=== PATIENT | male | born 1935 | race Caucasian/White ===

== ENCOUNTER 2018-02-28 06:39 | Day surgery (SDC) | END 2018-02-28 10:31 | disposition home or self-care (01) ==

== ENCOUNTER 2018-03-08 00:05 | Observation (INO) | END 2018-03-09 17:45 | disposition left against medical advice (07) ==

== ENCOUNTER 2018-03-10 01:19 | Inpatient (IN) | END 2018-03-14 16:20 | disposition home or self-care (01) | DRG 374 ==

== ENCOUNTER 2019-02-28 09:20 | Inpatient (IN) | payer MEDICARE, BC ==
[~2019-02-28] VITALS: Ht 167.6 cm; Wt 61.4 kg
[~2019-02-28 09:20] MED LIST: DONE10TA7 PO; MULTI PO; OMEG1CAP17 PO; OMEP40CA6 PO; TERA5CAP3 PO
[2019-02-28] MEDS ORDERED: SOD CHLORIDE 0.9% 1,000 ML IV STA (09:57)
[2019-02-28] MEDS ORDERED: PANT40TA4 PO (10:40)
[2019-02-28] MEDS ORDERED: ASC500 PO (10:40)
[2019-02-28] MEDS ORDERED: VIT1TABL46 PO (10:41)
--- NOTE | 2019-02-28 12:22 | ERD ---
ER Documentation Chief Complaint Chief Complaint SENT BY [facility] FOR DIARRHEA AND SYNCOPAL EPISODE WITH NO TRAUMA OR NEURO HPI This is an 83-year-old man with a history of esophageal cancer seen and evaluated at [facility] for multiple syncopal episodes occurring yesterday associated with loose stools and diarrhea. Patient was treated with IV fluids and antibiotics in the emergency department and was admitted after [place] physician spoke to on-call hospitalist at [facility]. Patient has had no blood per rectum or melena and no recent complaints of chest pain or shortness of breath. ROS All systems reviewed and are negative except as per history of present illness. Medications Home Meds Reported Medications Vitamin B Complex* (Vitamin B Complex*) 1 Each Tablet, 1 TAB PO DAILY, TAB 02/28/19 Ascorbic Acid (Vitamin C) 500 Mg Tab, 500 MG PO DAILY, TAB 02/28/19 Pantoprazole* (Pantoprazole*) 40 Mg Tablet.dr, 40 MG PO AC BREAKFAST, TAB 02/28/19 Discontinued Reported Medications Multivitamins* (Theragran*) 1 Tab Tab, 1 TAB PO DAILY, TAB 03/10/18 [place]-3 Fatty Acids/Fish Oil (Fish Oil 1,000 mg Softgel) 1 Each Capsule, 1 EACH PO, CAP 03/10/18 Omeprazole* (Omeprazole*) 40 Mg Capsule.dr, 40 MG PO DAILY, #30 CAP 03/10/18 Donepezil* (Aricept*) 10 Mg Tablet, 10 MG PO DAILY, TAB 03/10/18 Terazosin Hcl* (Terazosin Hcl*) 5 Mg Capsule, 5 MG PO HS, CAP 03/10/18 Allergies Allergies: Coded Allergies: No Known Allergy (Unverified , 02/28/19) PMhx/Soc Esophageal carcinoma, CAD, anemia, hypertension, hyperlipidemia, gastritis History of Surgery: Yes (stomach) Anesthesia Reaction: No Hx Neurological Disorder: No Hx Respiratory Disorders: No Hx Cardiac Disorders: Yes (low bp) Hx Psychiatric Problems: Yes (DEPRESSION) Hx Miscellaneous Medical Probl: Yes (prediabetes) Hx Alcohol Use: No Hx Substance Use: No (ALCOHOL) Hx Tobacco Use: No (QUIT FEW MONTHS AGO PER PATIENT) Smoking Status: Former smoker FmHx Family History: No diabetes Physical Exam Vitals Vital Signs Date Temp Pulse Resp B/P (MAP) Pulse Ox O2 O2 Flow FiO2 Time Delivery Rate 02/28/19 77 18 128/79 98 Room Air 10:15 (95) 02/28/19 98.4 98 20 124/73 97 09:38 (90) Physical Exam GENERAL: Well-developed, elderly, chronically debilitated man, appears dehydrated, afebrile HEENT: Dehydrated, pink conjunctive a, no cervical spine tenderness or step-off deformity CARDIAC: Regular rate and rhythm, no murmurs rubs or gallops LUNGS: Clear bilaterally no wheezing crackles or stridor SKIN: Warm and dry to touch, no abrasions, contusions, or hematomas, no lacerations, no ecchymosis, no target lesions, and without ulcers PSYCH: Normal affect without agitation or irritability Results 24 hrs Current Medications Medications Dose Sig/Rommel Start Time Status Last (Trade) Ordered Route PRN Stop Time Admin Dose Reason Admin Sodium 1,000 ml @ Q1H STAT 02/28/19 DC 02/28/19 Chloride 1,000 mls/hr IV 09:57 10:22 02/28/19 10:56 Procedures/MDM IV line was established patient was placed on equipment monitor phototypesetting rhythm strip revealed a sinus rhythm at about 80 bpm. I administered 1 L normal saline IV for dehydration. I reviewed patient's recent labs which were just performed at [facility], further intervention, imaging, and lab tests will be deferred to admitting team. Patient admitted to telemetry setting under hospitalist. Departure Diagnosis: Primary Impression: Syncope Syncope type: unspecified Qualified Codes: R55 - Syncope and collapse Additional Impressions: Diarrhea Diarrhea type: unspecified type Qualified Codes: R19.7 - Diarrhea, unspeci fied Dehydration Esophageal cancer Malignant neoplasm of esophagus location: unspecified location Qualified Codes: C15.9 - Malignant neoplasm of esophagus, unspecified Condition: JACOBY Brothers MD Feb 28, 2019 12:22
[2019-02-28] MEDS ORDERED: NACL 0.9% 3 ML SYG IV SCH (15:30)
[2019-02-28] MEDS ORDERED: SOD CHLORIDE 0.9% 1,000 ML IV SCH (15:30)
[2019-02-28] MEDS ORDERED: ONDANSETRON 4 MG INJ IV PRN (15:30)
[2019-02-28] MEDS ORDERED: ZOLPIDEM 5 MG TAB PO PRN (15:30)
[2019-02-28] MEDS ORDERED: DOCUSATE SODIUM 100 MG CAP PO PRN (15:30)
[2019-02-28] MEDS ORDERED: morphine 2 MG INJ IV PRN (15:30)
[2019-02-28] MEDS ORDERED: HYDROCODONE/APAP (5/325) TAB PO PRN (15:30)
[2019-02-28] MEDS ORDERED: ACETAMINOPHEN 325 MG TAB PO PRN (15:30)
--- NOTE | 2019-02-28 15:37 | HP ---
Date/Time of Note Date/Time of Note DATE: 02/28/19 TIME: 15:35 Assessment/Plan VTE Prophylaxis SCD applied (from Nsg): Yes Pharmacological prophylaxis: NA/contraindicated Pharm contraindication: low risk/ambulating Lines/Catheters IV Catheter Type (from Nrsg): Saline Lock Assessment/Plan Hospital Course 1. Presyncope likely secondary dehydration IV fluids No history of echo as patient has no cardiac history and did not actually syncopize PT eval 2. History of esophageal cancer status post surgery as well as chemotherapy 1 month ago Outpatient follow-up with oncology Prophylaxis: SCDs HPI/ROS Admit Date/Time Admit Date/Time February 28, 2019 Hx of Present Illness Patient is an 83-year-old male with a history of esophageal cancer status post surgery several months ago as well as one round of Chemotherapy 1 month ago. Patient presents with presyncope, patient denies nausea but does have reported diarrhea. Patient was transferred due to capitation. Patient denies any chest pain or dizziness at this time. ROS Constitutional: no complaints, improved Eyes: no complaints ENT: no complaints Respiratory: no complaints Cardiovascular: no complaints Gastrointestinal: no complaints Genitourinary: no complaints Musculoskeletal: no complaints Skin: no complaints Neurologic: no complaints Endocrine: no complaints Lymphatic: no complaints Psychological: no complaints, nl mood/affect Immunologic: no complaints PMH/Family/Social Past Medical History As per HPI Coded Allergies: No Known Allergy (Unverified , 02/28/19) Past Surgical History Past Surgical Hx: other Family History Significant Family History: COPD Social History Alcohol Use: rarely Smoking Status: Former smoker Drug Use: none Exam/Review of Systems Vital Signs Vitals Vital Signs Date Temp Pulse Resp B/P (MAP) Pulse Ox O2 O2 Flow FiO2 Time Delivery Rate 02/28/19 85 18 143/78 Room Air 13:19 (99) 02/28/19 98 10:15 02/28/19 98.4 09:38 Exam Constitutional: alert, oriented Respiratory: clear to auscultation Cardiovascular: regular rate and rhythm Gastrointestinal: soft; No distended Musculoskeletal: nl extremities to inspection KWAKU SONG Feb 28, 2019 15:37
[2019-02-28] MEDS: SOD CHLORIDE 0.9% 1,000 ML IV SCH (16:00)
[2019-02-28 19:01] VITALS: PULSE 87
[2019-02-28 20:00] VITALS: BP 145/73; PULSE 81; PULSE 87; RESP 20
[2019-02-28 23:14] VITALS: Ht 167.6 cm; Wt 61.4 kg
[2019-02-28 23:57] VITALS: BP 154/77; PULSE 95; RESP 20
[2019-03-01] VITALS (8 sets, daily range): BP systolic 127–139; BP diastolic 67–71; PULSE 66–88; RESP 18–20
[2019-03-01] MEDS: SOD CHLORIDE 0.9% 1,000 ML IV SCH ×3 (02:27→09:40)
[2019-03-01] MEDS ORDERED: PANTOPRAZOLE (EC) 40 MG TAB PO SCH (07:00)
[2019-03-01] MEDS ORDERED: VITAMIN B COMPLEX/VIT C CAP PO SCH (09:00)
[2019-03-01] MEDS ORDERED: ASCORBIC ACID 500 MG TAB PO SCH (09:00)
[2019-03-01] MEDS ORDERED: MAGNESIUM OXIDE 400 MG TAB PO ONE (11:30)
--- NOTE | 2019-03-01 12:36 | PDOCDIS ---
Discharge Instructions CONDITION [id number] Patient Condition: [id number] Good HOME CARE INSTRUCTIONS: [id number] Diet Instructions: [id number] Regular ACTIVITY: [id number] Activity Restrictions: [id number] No Restrictions FOLLOW UP/APPOINTMENTS Follow-up Plan FOLLOW UP WITH YOUR PCP AND ONCOLOGIST SCHEDULED KWAKU SONG Mar 01, 2019 12:36
--- NOTE | 2019-03-01 16:18 | DS ---
Date/Time of Note Date/Time of Note DATE: 03/01/19 TIME: 16:15 Discharge Summary Admission/Discharge Info Admit Date/Time Feb 28, 2019 at 09:58 Discharge Date/Time Mar 01, 2019 at 15:25 Discharge Diagnosis 1. Presyncope secondary to dehydration Status post IV fluids No history of echo as patient has no cardiac history and did not actually syncopize PT eval No further reports of dizziness or lightheadedness 2. History of esophageal cancer status post surgery as well as chemotherapy 1 month ago Outpatient follow-up with oncology Patient Condition: Good Hospital Course Patient is an 83-year-old male with a history of esophageal cancer status post surgery several months ago as well as one round of Chemotherapy 1 month ago. Patient presents with presyncope, patient denies nausea but does have reported diarrhea. Patient was transferred due to capitation. Patient received IV fluids and had no further episodes of diarrhea during hospitalization. Electrolytes were replaced as needed. Patient no longer had symptoms of dizziness and was stable for DC, on the day of discharge patient vitals, labs and physical exam are stable. Home Meds Reported Medications Vitamin B Complex* (Vitamin B Complex*) 1 Each Tablet, 1 TAB PO DAILY, TAB 02/28/19 Ascorbic Acid (Vitamin C) 500 Mg Tab, 500 MG PO DAILY, TAB 02/28/19 Pantoprazole* (Pantoprazole*) 40 Mg Tablet.dr, 40 MG PO AC BREAKFAST, TAB 02/28/19 Discontinued Reported Medications Multivitamins* (Theragran*) 1 Tab Tab, 1 TAB PO DAILY, TAB 03/10/18 [place]-3 Fatty Acids/Fish Oil (Fish Oil 1,000 mg Softgel) 1 Each Capsule, 1 EACH PO, CAP 03/10/18 Omeprazole* (Omeprazole*) 40 Mg Capsule.dr, 40 MG PO DAILY, #30 CAP 03/10/18 Donepezil* (Aricept*) 10 Mg Tablet, 10 MG PO DAILY, TAB 03/10/18 Terazosin Hcl* (Terazosin Hcl*) 5 Mg Capsule, 5 MG PO HS, CAP 03/10/18 Follow-up Plan FOLLOW UP WITH YOUR PCP AND ONCOLOGIST SCHEDULED Primary Care Provider Not On Staff Doctor Time spent on discharge: > 30 minutes KWAKU SONG Mar 01, 2019 16:18
== END 2019-03-01 15:25 | disposition home or self-care (01) | DRG 641 ==
LOC: E/R 09:20 → TEL 09:58
PROVIDERS: ADMIT Internal Medicine; ATTEND Internal Medicine
DX: E86.0 Dehydration (principal); C15.5 Malignant neoplasm of lower third of esophagus; R55 Syncope and collapse; I10 Essential (primary) hypertension; I25.10 Atherosclerotic heart disease of native coronary artery without angina pectoris; E78.5 Hyperlipidemia, unspecified; D64.9 Anemia, unspecified; K29.70 Gastritis, unspecified, without bleeding; Z87.891 Personal history of nicotine dependence
CPT/HCPCS: 80048; 83036; 83735; 84100; 85025; 97161; J7030